=== PATIENT | male | born 1960 | race Caucasian/White ===

== ENCOUNTER 2018-04-10 17:59 | Inpatient (IN) | payer MEDICAID, OTHER ==
[~2018-04-10] VITALS: Ht 167.6 cm; Wt 62.6 kg
[~2018-04-10 17:59] MED LIST: AMLO10TA80 PO; ASPI-1159 PO; ATEN-42 PO; ATOR10TA PO; ATOR20TA PO; BENA20TA10 PO; DAILYVITE PO; DOCU-138 PO; FOLI-43 PO; HYDR100T26 PO; LORA10TA7 PO; NIFE60TA64 PO; NIFE60TA78 PO; OMEP20CA10 PO; REN800 PO
[2018-04-11] VITALS (7 sets, daily range): BP systolic 148–217; BP diastolic 67–104
[2018-04-11 03:30] LABS: BASOPHILS % 1.9 % (0.0-2.0); EOSINOPHILS % 6.3 % (0.0-5.0); HEMATOCRIT. 31.6 % (42.0-52.0); HEMOGLOBIN. 10.8 g/dL (14.0-18.0); MEAN CORPUSCULAR HEMOGLOBIN 33.4 pg (28.0-32.0); MEAN CORPUSCULAR VOLUME 97.8 fL (80.0-94.0); MEAN PLATELET VOLUME 9.4 fl (7.4-10.4); MONOCYTES % 8.8 % (2.0-8.0); PLATELET 279 x1000/uL (130-400); RED BLOOD CELL COUNT 3.23 mill/uL (4.7-6.1); RED CELL DISTRIBUTION WIDTH 13.8 % (11.6-14.6)
[2018-04-11 03:41] LABS: CHLORIDE 102 mEq/L (98-107)
[2018-04-11] MEDS ORDERED: HYDRALAZINE HCL 50MG TABLET PO NR (08:30)
[2018-04-11] MEDS ORDERED: ACETAMINOPHEN 325MG TABLET PO PRN (10:45)
[2018-04-11] MEDS ORDERED: HYDROCODONE/ACETAMINOPHEN 5/325MG TABLET PO PRN (10:45)
[2018-04-11] MEDS ORDERED: GUAIFENESIN 200MG/10ML SUGAR FREE UDC PO PRN (10:45)
[2018-04-11] MEDS ORDERED: DOCUSATE SODIUM 100MG CAPSULE PO PRN (10:45)
[2018-04-11] MEDS ORDERED: LORAZEPAM 2MG/ML CPJ IV PRN (10:45)
[2018-04-11] MEDS ORDERED: ONDANSETRON HCL 4MG/2ML INJ IV PRN ×2 (10:45→21:00)
[2018-04-11] MEDS ORDERED: CLONIDINE HCL 0.2MG/24HR PATCH TOP SCH (11:00)
[2018-04-11] MEDS ORDERED: AMLODIPINE 10MG TABLET PO NR (11:15)
[2018-04-11] MEDS ORDERED: METOPROLOL TARTRATE 25MG TABLET PO NR (11:15)
[2018-04-11] MEDS ORDERED: LISINOPRIL 5MG TABLET PO NR (12:00)
[2018-04-11] MEDS: LISINOPRIL 40MG TABLET PO SCH (13:45)
[2018-04-11] MEDS: MINOXIDIL 2.5MG TABLET PO SCH ×2 (15:28→20:20)
[2018-04-11] MEDS: AZITHROMYCIN 500 MG TABLET PO SCH (16:12)
[2018-04-11] MEDS ORDERED: DEXTROSE 50% WATER 50ML SYRINGE IV PRN (17:00)
[2018-04-11] MEDS: BLOOD SUGAR DIAGNOSTIC STRIP TEST SCH ×2 (17:32→20:24)
[2018-04-11] MEDS: SEVELAMER CARBONATE 800 MG TABLET PO SCH (17:40)
[2018-04-11] MEDS: INSULIN LISPRO 100 UNITS/ML SUBCUT SCH ×2 (17:40→20:25)
[2018-04-11] MEDS: METOPROLOL TARTRATE 25MG TABLET PO SCH (20:20)
[2018-04-11] MEDS: IPRATROPIUM BROMIDE (0.02%) 0.5MG/2.5ML NEB HHN SCH (21:05)
[2018-04-11] MEDS: ALBUTEROL (0.083%) 2.5MG/3ML NEB HHN SCH (21:05)
[2018-04-11] MEDS ORDERED: CLONIDINE 0.1MG TABLET PO PRN (22:00)
[2018-04-12] VITALS (12 sets, daily range): BP systolic 116–198; BP diastolic 62–97
[2018-04-12] MEDS: IPRATROPIUM BROMIDE (0.02%) 0.5MG/2.5ML NEB HHN SCH ×3 (02:06→19:45)
[2018-04-12] MEDS: ALBUTEROL (0.083%) 2.5MG/3ML NEB HHN SCH ×4 (02:06→19:45)
[2018-04-12 07:02] LABS: BASOPHILS % 1.2 % (0.0-2.0); EOSINOPHILS % 0.8 % (0.0-5.0); HEMATOCRIT. 37.5 % (42.0-52.0); HEMOGLOBIN. 12.4 g/dL (14.0-18.0); LYMPHOCYTES % 10.3 % (20.0-50.0); MEAN CORPUSCULAR HEMOGLOBIN 32.1 pg (28.0-32.0); MEAN CORPUSCULAR VOLUME 97.5 fL (80.0-94.0); MEAN PLATELET VOLUME 9.5 fl (7.4-10.4); MONOCYTES % 7.2 % (2.0-8.0); NEUTROPHILS % 80.5 % (40.0-76.0); PLATELET 298 x1000/uL (130-400); RED BLOOD CELL COUNT 3.85 mill/uL (4.7-6.1); RED CELL DISTRIBUTION WIDTH 13.8 % (11.6-14.6)
[2018-04-12 07:38] LABS: CHLORIDE 98 mEq/L (98-107)
[2018-04-12 07:48] LABS: PHOSPHORUS 5.5 mg/dL (2.5-4.9)
[2018-04-12] MEDS: MINOXIDIL 2.5MG TABLET PO SCH ×2 (08:27→21:24)
[2018-04-12] MEDS: SEVELAMER CARBONATE 800 MG TABLET PO SCH ×3 (08:27→17:46)
[2018-04-12] MEDS: AMLODIPINE 10MG TABLET PO SCH (08:27)
[2018-04-12] MEDS: LISINOPRIL 40MG TABLET PO SCH (08:27)
[2018-04-12] MEDS: AZITHROMYCIN 500 MG TABLET PO SCH (08:28)
[2018-04-12] MEDS: BLOOD SUGAR DIAGNOSTIC STRIP TEST SCH ×4 (08:28→21:16)
[2018-04-12] MEDS: METOPROLOL TARTRATE 25MG TABLET PO SCH ×2 (08:28→21:24)
[2018-04-12] MEDS ORDERED: SODIUM POLYSTYRENE SULFONATE 15 G/60 ML BOT PO NR (09:08)
[2018-04-12] MEDS: INSULIN LISPRO 100 UNITS/ML SUBCUT SCH ×4 (09:27→21:25)
[2018-04-12] MEDS ORDERED: AZITHROMYCIN 500 MG TABLET PO SCH (11:45)
[2018-04-12] MEDS ORDERED: BENZONATATE 100MG CAPSULE PO PRN (11:45)
[2018-04-12] MEDS: FOLIC ACID/VITAMIN B COMP W-C TABLET PO SCH (17:45)
[2018-04-13] VITALS (9 sets, daily range): BP systolic 118–159; BP diastolic 53–86
[2018-04-13] MEDS: IPRATROPIUM BROMIDE (0.02%) 0.5MG/2.5ML NEB HHN SCH ×2 (01:50→12:06)
[2018-04-13] MEDS: ALBUTEROL (0.083%) 2.5MG/3ML NEB HHN SCH (01:50)
[2018-04-13 07:31] LABS: CHLORIDE 103 mEq/L (98-107)
[2018-04-13 07:38] LABS: PHOSPHORUS 4.6 mg/dL (2.5-4.9)
[2018-04-13] MEDS: FOLIC ACID/VITAMIN B COMP W-C TABLET PO SCH (08:21)
[2018-04-13] MEDS: AZITHROMYCIN 500 MG TABLET PO SCH (08:22)
[2018-04-13] MEDS: SEVELAMER CARBONATE 800 MG TABLET PO SCH ×2 (08:22→12:46)
[2018-04-13] MEDS: AMLODIPINE 10MG TABLET PO SCH (08:22)
[2018-04-13] MEDS: MINOXIDIL 2.5MG TABLET PO SCH (08:23)
[2018-04-13] MEDS: LISINOPRIL 40MG TABLET PO SCH (08:23)
[2018-04-13] MEDS: METOPROLOL TARTRATE 25MG TABLET PO SCH (08:23)
[2018-04-13] MEDS: BLOOD SUGAR DIAGNOSTIC STRIP TEST SCH ×2 (08:24→12:48)
[2018-04-13] MEDS: INSULIN LISPRO 100 UNITS/ML SUBCUT SCH ×2 (08:24→12:47)
[2018-04-13] MEDS ORDERED: SODIUM POLYSTYRENE SULFONATE 15 G/60 ML BOT PO SCH (14:15)
== END 2018-04-13 18:14 | disposition home or self-care (01) | DRG 140 ==
LOC: ER 17:59 → 5EST 04-11 06:27 → EDBEDREQ 04-11 06:30 → EDBEDREQTM 04-11 06:30 → CANRESERV 04-11 08:00 → ENRESERV 04-11 08:00 → CANRESERV 04-11 09:12 → SUPCPDRO 04-11 10:35 → EDBEDREQSVC 04-11 10:59 → EDBEDREQ 04-11 10:59 → CANBEDREQ 04-11 11:00 → ENRESERV 04-11 11:21 → EDBEDREQSVC 04-11 11:56
PROVIDERS: ADMIT Hospitalist; ATTEND Hospitalist
PROC: 5A1D70Z Performance of Urinary Filtration, Intermittent, Less than 6 Hours Per Day (ICD-10-PCS; principal; 2018-04-12)
DX: J44.0 Chronic obstructive pulmonary disease with (acute) lower respiratory infection (principal); J18.9 Pneumonia, unspecified organism; E11.21 Type 2 diabetes mellitus with diabetic nephropathy; E11.649 Type 2 diabetes mellitus with hypoglycemia without coma; I13.11 Hypertensive heart and chronic kidney disease without heart failure, with stage 5 chronic kidney disease, or end stage renal disease; I16.0 Hypertensive urgency; N18.6 End stage renal disease; D63.1 Anemia in chronic kidney disease; K21.9 Gastro-esophageal reflux disease without esophagitis; E78.5 Hyperlipidemia, unspecified; N25.81 Secondary hyperparathyroidism of renal origin; E87.5 Hyperkalemia; E11.22 Type 2 diabetes mellitus with diabetic chronic kidney disease; Z99.2 Dependence on renal dialysis; Z87.891 Personal history of nicotine dependence; Z79.899 Other long term (current) drug therapy; Z79.82 Long term (current) use of aspirin; E44.1 Mild protein-calorie malnutrition
CPT/HCPCS: 36415; 71045; 82947; 82962; 83735; 84100; 84484; 87804; 93005; 93970; 94640; 99285; J1815; J2405; J7030; J7611

== ENCOUNTER 2018-07-27 17:32 | Inpatient (IN) | payer MEDICAID ==
[~2018-07-27] VITALS: Ht 167.6 cm; Wt 69.9 kg
[~2018-07-27 17:32] MED LIST changes: -AMLO10TA80 PO; -ATEN-42 PO; -ATOR20TA PO; -DAILYVITE PO; -LORA10TA7 PO; -NIFE60TA78 PO; -REN800 PO
[2018-07-27] MEDS ORDERED: ONDANSETRON HCL 4MG/2ML INJ IV STA (22:45)
[2018-07-27] MEDS ORDERED: KETOROLAC 30MG/ML VIAL IV STA (22:45)
[2018-07-27 23:28] LABS: BASOPHILS % 1.8 % (0.0-2.0); EOSINOPHILS % 7.5 % (0.0-5.0); HEMATOCRIT. 32.6 % (42.0-52.0); HEMOGLOBIN. 10.9 g/dL (14.0-18.0); MEAN CORPUSCULAR HEMOGLOBIN 33.8 pg (28.0-32.0); MEAN CORPUSCULAR VOLUME 100.7 fL (80.0-94.0); MEAN PLATELET VOLUME 8.9 fl (7.4-10.4); MONOCYTES % 13.3 % (2.0-8.0); NEUTROPHILS % 59.4 % (40.0-76.0); PLATELET 290 x1000/uL (130-400); RED BLOOD CELL COUNT 3.23 mill/uL (4.7-6.1)
[2018-07-27 23:30] LABS: CHLORIDE 95 mEq/L (98-107)
[2018-07-28] MEDS ORDERED: PIPERACILLIN/TAZ 3.375G PREMIX 50 ML IV ONE (02:45)
[2018-07-28] MEDS ORDERED: VANCOMYCIN 1 G PREMIX 200 ML IV ONE (02:45)
[2018-07-28] MEDS ORDERED: MORPHINE SULFATE 4 MG/ML CPJ (NOT FOR IM USE) IV ONE (04:15)
[2018-07-28] MEDS ORDERED: DEXTROSE 50% WATER 50ML SYRINGE IV PRN (05:45)
[2018-07-28] MEDS ORDERED: IPRATROPIUM/ALBUTEROL 0.5-3(2.5)MG/3ML NEB INH PRN (05:45)
[2018-07-28] MEDS ORDERED: LORAZEPAM 2MG/ML CPJ IV PRN (05:45)
[2018-07-28] MEDS ORDERED: ENOXAPARIN 40MG/0.4ML SYR SUBCUT SCH (05:45)
[2018-07-28] MEDS ORDERED: HYDROCODONE/ACETAMINOPHEN 10/325MG TABLET PO PRN (05:45)
[2018-07-28] MEDS ORDERED: ONDANSETRON HCL 4MG/2ML INJ IV ONE (05:45)
[2018-07-28] MEDS ORDERED: HYDRALAZINE 20MG/ML VIAL IV PRN (05:45)
[2018-07-28] MEDS ORDERED: HYDROMORPHONE HCL/PF 2MG/ML CPJ IV PRN (05:45)
[2018-07-28] MEDS ORDERED: DIPHENHYDRAMINE 50MG/ML VIAL IV PRN (05:45)
[2018-07-28] MEDS ORDERED: ACETAMINOPHEN 325MG TABLET PO PRN (05:45)
[2018-07-28] MEDS ORDERED: DOCUSATE SODIUM 100MG CAPSULE PO PRN (05:45)
[2018-07-28] MEDS ORDERED: ONDANSETRON HCL 4MG/2ML INJ IV PRN (05:45)
[2018-07-28] MEDS ORDERED: PIPERACILLIN/TAZ 3.375G PREMIX 50 ML IV SCH (05:45)
[2018-07-28] MEDS ORDERED: GUAIFENESIN 200MG/10ML SUGAR FREE UDC PO PRN (05:45)
[2018-07-28] MEDS ORDERED: MAGNESIUM/ALUMINUM HYDROXIDE/SIMETHICONE 30ML UDC PO PRN (05:45)
[2018-07-28] MEDS: SODIUM CHLORIDE 0.9% INJ 3ML FLUSH IVF SCH ×3 (06:56→22:24)
[2018-07-28] MEDS: INSULIN LISPRO 100 UNITS/ML SUBCUT SCH ×4 (08:20→21:00)
[2018-07-28] MEDS: BLOOD SUGAR DIAGNOSTIC STRIP TEST SCH ×4 (08:21→21:25)
[2018-07-28 09:31] LABS: CREATINE KINASE MB FRACTION 2.3 ng/mL (0.5-3.6)
[2018-07-28 10:00] VITALS: BP 219/99
[2018-07-28] MEDS ORDERED: LACTULOSE 20G/30ML UDC PO NR (11:30)
[2018-07-28] MEDS ORDERED: MEDICATION NOT ON FORMULARY EA (Folic Acid 1 MG) PO SCH (11:45)
[2018-07-28] MEDS ORDERED: MEDICATION NOT ON FORMULARY EA (Benazepril Hcl 20 MG) PO SCH (11:45)
[2018-07-28] MEDS ORDERED: INFLUENZA VIRUS VACCINE(AFLURIA) 0.5ML SYR IM ONE (11:45)
[2018-07-28] MEDS ORDERED: MEDICATION NOT ON FORMULARY EA (Docusate Sodium (Colace) 100 MG) PO PRN (11:45)
[2018-07-28] MEDS ORDERED: BISACODYL 10MG SUPP PR NR (11:45)
[2018-07-28] MEDS: ASPIRIN 81MG EC TABLET PO SCH ×2 (12:23→14:21)
[2018-07-28] MEDS: BENAZEPRIL 10MG TABLET PO SCH (12:27)
[2018-07-28] MEDS: NIFEDIPINE XL 60MG TAB PO SCH ×2 (12:28→14:22)
[2018-07-28] MEDS: PIPERACILLIN/TAZ 2.25G PREMIX 50 ML IV SCH ×2 (13:22→20:05)
[2018-07-28] MEDS ORDERED: VANCOMYCIN 500 MG PREMIX 100 ML IV NR (14:00)
[2018-07-28] MEDS ORDERED: NIFEDIPINE XL 60MG TAB PO NR (14:30)
[2018-07-28] MEDS ORDERED: BENAZEPRIL 10MG TABLET PO NR (14:30)
[2018-07-28] MEDS ORDERED: METOCLOPRAMIDE HCL 10MG/2ML VIAL IV PRN (14:30)
[2018-07-28] MEDS: ENOXAPARIN 30MG/0.3ML SYR SUBCUT SCH (14:31)
[2018-07-28] MEDS: OMEPRAZOLE 20MG CAPSULE EXTENDED RELEASE PO SCH (15:28)
[2018-07-28] MEDS ORDERED: CLONIDINE HCL 0.1MG/24HR PATCH TD NR (16:00)
[2018-07-28] MEDS: CLONIDINE 0.1MG TABLET PO PRN ×2 (17:53→18:01)
[2018-07-28 20:00] VITALS: BP 180/79
[2018-07-28] MEDS ORDERED: NIFEDIPINE 60 MG PO SCH (21:00)
[2018-07-28] MEDS ORDERED: ATORVASTATIN CALCIUM 10MG TABLET PO SCH (21:00)
[2018-07-29] VITALS: BP 134/65
[2018-07-29 04:00] VITALS: BP 191/96
[2018-07-29] MEDS: PIPERACILLIN/TAZ 2.25G PREMIX 50 ML IV SCH ×2 (04:17→12:00)
[2018-07-29] MEDS: SODIUM CHLORIDE 0.9% INJ 3ML FLUSH IVF SCH ×2 (06:05→12:46)
[2018-07-29] MEDS: BLOOD SUGAR DIAGNOSTIC STRIP TEST SCH ×2 (06:05→12:47)
[2018-07-29] MEDS: INSULIN LISPRO 100 UNITS/ML SUBCUT SCH ×2 (06:05→12:48)
[2018-07-29] MEDS: OMEPRAZOLE 20MG CAPSULE EXTENDED RELEASE PO SCH (06:05)
[2018-07-29 06:20] LABS: BASOPHILS % 1.1 % (0.0-2.0); EOSINOPHILS % 5.8 % (0.0-5.0); HEMATOCRIT. 32.6 % (42.0-52.0); LYMPHOCYTES % 11.9 % (20.0-50.0); MEAN CORPUSCULAR HEMOGLOBIN 33.8 pg (28.0-32.0); MEAN CORPUSCULAR VOLUME 99.9 fL (80.0-94.0); MEAN PLATELET VOLUME 9.3 fl (7.4-10.4); MONOCYTES % 9.2 % (2.0-8.0); PLATELET 291 x1000/uL (130-400); RED BLOOD CELL COUNT 3.26 mill/uL (4.7-6.1); RED CELL DISTRIBUTION WIDTH 13.2 % (11.6-14.6)
[2018-07-29 06:23] LABS: CHLORIDE 96 mEq/L (98-107)
[2018-07-29 06:36] LABS: PHOSPHORUS 4.7 mg/dL (2.5-4.9)
[2018-07-29 06:37] LABS: LDL CHOLESTEROL 101 mg/dL (5-100)
[2018-07-29 06:38] LABS: T4 FREE 0.97 ng/dL (0.76-1.46)
[2018-07-29 06:39] LABS: HDL CHOLESTEROL 77 mg/dL (40-59)
[2018-07-29] MEDS ORDERED: FOLIC ACID 1MG TABLET PO SCH (09:00)
[2018-07-29] MEDS ORDERED: BENAZEPRIL 10MG TABLET PO SCH (09:00)
[2018-07-29] MEDS ORDERED: NIFEDIPINE XL 60MG TAB PO SCH (09:00)
[2018-07-29 12:00] VITALS: BP 227/107
[2018-07-29] MEDS: ENOXAPARIN 30MG/0.3ML SYR SUBCUT SCH (12:00)
[2018-07-29] MEDS: CLONIDINE 0.1MG TABLET PO PRN (12:02)
[2018-07-29] MEDS ORDERED: VANCOMYCIN 750 MG PREMIX 150 ML IV SCH (15:00)
[2018-07-29 16:06] VITALS: BP 152/83
== END 2018-07-29 16:53 | disposition left against medical advice (07) | DRG 247 ==
LOC: ER 17:32 → 6WST 07-28 02:38 → EDBEDREQ 07-28 02:40 → EDBEDREQTM 07-28 02:40 → EDBEDREQDT 07-28 02:40 → EDBEDREQSVC 07-28 02:40 → ENRESERV 07-28 07:58
PROVIDERS: ADMIT Internal Medicine; ATTEND Internal Medicine
PROC: 5A1D70Z Performance of Urinary Filtration, Intermittent, Less than 6 Hours Per Day (ICD-10-PCS; principal; 2018-07-29)
DX: K56.41 Fecal impaction (principal); E11.22 Type 2 diabetes mellitus with diabetic chronic kidney disease; I12.0 Hypertensive chronic kidney disease with stage 5 chronic kidney disease or end stage renal disease; E87.1 Hypo-osmolality and hyponatremia; N18.6 End stage renal disease; D64.9 Anemia, unspecified; E78.5 Hyperlipidemia, unspecified; I16.0 Hypertensive urgency; K21.9 Gastro-esophageal reflux disease without esophagitis; N25.81 Secondary hyperparathyroidism of renal origin; Z79.82 Long term (current) use of aspirin; Z79.899 Other long term (current) drug therapy; Z82.49 Family history of ischemic heart disease and other diseases of the circulatory system; Z83.3 Family history of diabetes mellitus; Z99.2 Dependence on renal dialysis
CPT/HCPCS: 36415; 71045; 74176; 78265; 80061; 80202; 82550; 82553; 82962; 83605; 83735; 84100; 84145; 84439; 84443; 84484; 93005; 93970; 96365; 96375; 99285; J0360; J1650; J1885; J2270; J2405; J2543; J2765; J3370

== ENCOUNTER 2018-10-01 22:09 | Inpatient (IN) | payer MEDICAID ==
[~2018-10-01] VITALS: Ht 167.6 cm; Wt 72.3 kg
[2018-10-01] MEDS ORDERED: ONDANSETRON HCL 4MG/2ML INJ IV STA (22:55)
[2018-10-01 23:37] LABS: BASOPHILS % 0.6 % (0.0-2.0); EOSINOPHILS % 1.4 % (0.0-5.0); HEMATOCRIT. 44.5 % (42.0-52.0); HEMOGLOBIN. 15.1 g/dL (14.0-18.0); LYMPHOCYTES % 15.9 % (20.0-50.0); MEAN CORPUSCULAR HEMOGLOBIN 33.2 pg (28.0-32.0); MEAN PLATELET VOLUME 9.9 fl (7.4-10.4); MONOCYTES % 2.3 % (2.0-8.0); NEUTROPHILS % 79.8 % (40.0-76.0); PLATELET 337 x1000/uL (130-400); RED BLOOD CELL COUNT 4.54 mill/uL (4.7-6.1); RED CELL DISTRIBUTION WIDTH 14.1 % (11.6-14.6)
[2018-10-01 23:43] LABS: CHLORIDE 87 mEq/L (98-107)
[2018-10-01] MEDS ORDERED: MORPHINE SULFATE 4 MG/ML CPJ (NOT FOR IM USE) IV NR (23:45)
[2018-10-01] MEDS ORDERED: ONDANSETRON HCL 4MG/2ML INJ IV NR (23:45)
[2018-10-02] MEDS ORDERED: PANTOPRAZOLE SODIUM 40 MG/VIAL IV NR (00:30)
[2018-10-02] MEDS ORDERED: ONDANSETRON HCL 4MG/2ML INJ IV STA (04:27)
[2018-10-02] MEDS ORDERED: HYDRALAZINE 20MG/ML VIAL IV PRN (05:30)
[2018-10-02] MEDS ORDERED: HYDRALAZINE 20MG/ML VIAL IV NR ×2 (05:30)
[2018-10-02] MEDS: MORPHINE SULFATE 4 MG/ML CPJ (NOT FOR IM USE) IV PRN ×2 (05:45→11:47)
[2018-10-02] MEDS ORDERED: DEXTROSE 50% WATER 50ML SYRINGE IV PRN (08:45)
[2018-10-02] MEDS ORDERED: ONDANSETRON HCL 4MG/2ML INJ IV PRN (08:45)
[2018-10-02] MEDS ORDERED: LACTULOSE 20G/30ML UDC PO PRN (08:45)
[2018-10-02] MEDS ORDERED: LOSARTAN POTASSIUM 50 MG TABLET PO SCH (09:00)
[2018-10-02] MEDS: CLONIDINE 0.1MG TABLET PO PRN (09:10)
[2018-10-02] MEDS ORDERED: SORBITOL 70% SOLN 30ML PO SCH (09:15)
[2018-10-02] MEDS: DOCUSATE SODIUM 250MG CAPSULE PO SCH ×2 (09:31→17:50)
[2018-10-02] MEDS: PANTOPRAZOLE SODIUM 40 MG/VIAL IV SCH (09:38)
[2018-10-02] MEDS: BLOOD SUGAR DIAGNOSTIC STRIP TEST SCH ×4 (09:48→21:00)
[2018-10-02 11:30] VITALS: BP 168/109
[2018-10-02] MEDS: ONDANSETRON HCL 4MG/2ML INJ IV PRN ×2 (11:46→19:53)
[2018-10-02 11:50] VITALS: BP 168/109
[2018-10-02] MEDS ORDERED: MINERAL OIL ENEMA 133ML PR NR (12:00)
[2018-10-02] MEDS ORDERED: BISACODYL 5MG TABLET PO NR (12:15)
[2018-10-02] MEDS: INSULIN LISPRO 100 UNITS/ML SUBCUT SCH ×3 (12:42→21:00)
[2018-10-02] MEDS ORDERED: LABETALOL 5MG/ML SYR 20 MG/4 ML SYRINGE IV PRN (14:15)
[2018-10-02] MEDS: MINERAL OIL ENEMA 133ML PR PRN ×2 (15:16→15:18)
[2018-10-02 16:15] VITALS: BP 117/77
[2018-10-02 16:27] LABS: HEMOGLOBIN. 14.4 g/dL (14.0-18.0); MEAN CORPUSCULAR HEMOGLOBIN 32.9 pg (28.0-32.0); MEAN PLATELET VOLUME 10.3 fl (7.4-10.4); PLATELET 282 x1000/uL (130-400); RED BLOOD CELL COUNT 4.39 mill/uL (4.7-6.1); RED CELL DISTRIBUTION WIDTH 14.6 % (11.6-14.6)
[2018-10-02 16:40] LABS: CHLORIDE 88 mEq/L (98-107)
[2018-10-02] MEDS ORDERED: KETOROLAC 15MG/ML VIAL IV PRN ×2 (17:00→18:45)
[2018-10-02] MEDS ORDERED: BISACODYL 10MG SUPP PR NR (17:00)
[2018-10-02 17:21] LABS: PLATELET ESTIMATE NORMAL
[2018-10-02 17:30] VITALS: BP 165/98
[2018-10-02] MEDS ORDERED: ONDANSETRON HCL 4MG/2ML INJ IV NR (17:30)
[2018-10-02] MEDS ORDERED: SORBITOL 70% SOLN 30ML PO NR (18:00)
[2018-10-02] MEDS: ENALAPRIL 1.25MG/ML VIAL 1ML IV SCH (18:14)
[2018-10-02 20:00] VITALS: BP 110/60
[2018-10-02] MEDS: HYDRALAZINE 20MG/ML VIAL IV SCH (21:30)
[2018-10-02] MEDS: INSULIN GLARGINE UD 100 UNITS/ML SYR SUBCUT SCH (22:00)
[2018-10-03] VITALS (7 sets, daily range): BP systolic 123–194; BP diastolic 67–95
[2018-10-03] MEDS: HYDRALAZINE 20MG/ML VIAL IV SCH ×3 (04:58→21:21)
[2018-10-03] MEDS: METOCLOPRAMIDE HCL 10MG/2ML VIAL IV SCH ×3 (05:00→21:21)
[2018-10-03] MEDS: ENALAPRIL 1.25MG/ML VIAL 1ML IV SCH ×2 (05:05)
[2018-10-03 06:39] LABS: HEMATOCRIT. 39.5 % (42.0-52.0); HEMOGLOBIN. 13.1 g/dL (14.0-18.0); MEAN CORPUSCULAR HEMOGLOBIN 32.5 pg (28.0-32.0); MEAN CORPUSCULAR VOLUME 97.6 fL (80.0-94.0); MEAN PLATELET VOLUME 10.4 fl (7.4-10.4); PLATELET 265 x1000/uL (130-400); RED BLOOD CELL COUNT 4.04 mill/uL (4.7-6.1); RED CELL DISTRIBUTION WIDTH 14.6 % (11.6-14.6)
[2018-10-03] MEDS: BLOOD SUGAR DIAGNOSTIC STRIP TEST SCH ×4 (06:58→21:20)
[2018-10-03] MEDS: INSULIN LISPRO 100 UNITS/ML SUBCUT SCH ×4 (06:59→21:00)
[2018-10-03 07:32] LABS: CHLORIDE 96 mEq/L (98-107)
[2018-10-03 07:49] LABS: PHOSPHORUS 7.4 mg/dL (2.5-4.9)
[2018-10-03] MEDS: INSULIN GLARGINE UD 100 UNITS/ML SYR SUBCUT SCH ×2 (09:15→21:34)
[2018-10-03] MEDS: PANTOPRAZOLE SODIUM 40 MG/VIAL IV SCH (09:26)
[2018-10-03 10:21] LABS: PLATELET ESTIMATE NORMAL
[2018-10-03] MEDS ORDERED: CLONIDINE HCL 0.1MG/24HR PATCH TD SCH (11:00)
[2018-10-03] MEDS ORDERED: DILTIAZEM HCL 60MG TABLET PO NR (18:45)
[2018-10-04] VITALS: BP 133/65
[2018-10-04 04:00] VITALS: BP 168/69
[2018-10-04] MEDS: HYDRALAZINE 20MG/ML VIAL IV SCH ×3 (04:56→20:31)
[2018-10-04] MEDS: METOCLOPRAMIDE HCL 10MG/2ML VIAL IV SCH ×3 (05:17→22:38)
[2018-10-04 06:47] LABS: HEMATOCRIT. 35.7 % (42.0-52.0); HEMOGLOBIN. 12.1 g/dL (14.0-18.0); MEAN CORPUSCULAR HEMOGLOBIN 33.1 pg (28.0-32.0); MEAN CORPUSCULAR VOLUME 97.8 fL (80.0-94.0); MEAN PLATELET VOLUME 10.1 fl (7.4-10.4); PLATELET 241 x1000/uL (130-400); RED BLOOD CELL COUNT 3.65 mill/uL (4.7-6.1); RED CELL DISTRIBUTION WIDTH 14.8 % (11.6-14.6)
[2018-10-04] MEDS: BLOOD SUGAR DIAGNOSTIC STRIP TEST SCH ×4 (07:20→21:17)
[2018-10-04 07:38] LABS: PHOSPHORUS 6.4 mg/dL (2.5-4.9)
[2018-10-04] MEDS: INSULIN LISPRO 100 UNITS/ML SUBCUT SCH ×4 (07:50→21:00)
[2018-10-04 08:52] VITALS: BP 157/78
[2018-10-04] MEDS: PANTOPRAZOLE SODIUM 40 MG/VIAL IV SCH (09:14)
[2018-10-04] MEDS: DOCUSATE SODIUM 250MG CAPSULE PO SCH (09:14)
[2018-10-04] MEDS: INSULIN GLARGINE UD 100 UNITS/ML SYR SUBCUT SCH ×2 (10:00→22:00)
[2018-10-04 10:31] LABS: PLATELET ESTIMATE NORMAL
[2018-10-04] MEDS ORDERED: REGADENOSON 0.4 MG/5 ML IV NR (11:45)
[2018-10-04 12:00] VITALS: BP 191/89
[2018-10-04] MEDS: CALCIUM ACETATE 667MG CAPSULE PO SCH ×2 (13:51→18:56)
[2018-10-04 16:43] VITALS: BP 199/98
[2018-10-04 20:00] VITALS: BP 208/100
[2018-10-04] MEDS ORDERED: HYDROCODONE/ACETAMINOPHEN 5/325MG TABLET PO PRN (21:00)
[2018-10-05] MEDS: CLONIDINE 0.1MG TABLET PO PRN ×3 (00:03→14:13)
[2018-10-05 01:00] VITALS: BP 166/89
[2018-10-05 04:00] VITALS: BP 156/70
[2018-10-05] MEDS: HYDRALAZINE 20MG/ML VIAL IV SCH ×2 (05:30→13:30)
[2018-10-05] MEDS: METOCLOPRAMIDE HCL 10MG/2ML VIAL IV SCH (05:53)
[2018-10-05 06:28] LABS: HEMATOCRIT. 32.7 % (42.0-52.0); MEAN CORPUSCULAR HEMOGLOBIN 33.1 pg (28.0-32.0); MEAN CORPUSCULAR VOLUME 98.5 fL (80.0-94.0); MEAN PLATELET VOLUME 10.1 fl (7.4-10.4); PLATELET 233 x1000/uL (130-400); RED BLOOD CELL COUNT 3.32 mill/uL (4.7-6.1); RED CELL DISTRIBUTION WIDTH 14.7 % (11.6-14.6)
[2018-10-05 07:06] LABS: PHOSPHORUS 5.5 mg/dL (2.5-4.9)
[2018-10-05] MEDS: INSULIN LISPRO 100 UNITS/ML SUBCUT SCH ×2 (07:50→13:39)
[2018-10-05] MEDS: CALCIUM ACETATE 667MG CAPSULE PO SCH ×2 (07:50→13:36)
[2018-10-05 08:41] LABS: PLATELET ESTIMATE NORMAL
[2018-10-05 08:50] VITALS: BP 153/81
[2018-10-05] MEDS: DOCUSATE SODIUM 250MG CAPSULE PO SCH (09:37)
[2018-10-05] MEDS: PANTOPRAZOLE SODIUM 40 MG/VIAL IV SCH (09:38)
[2018-10-05] MEDS: INSULIN GLARGINE UD 100 UNITS/ML SYR SUBCUT SCH ×2 (10:00→13:10)
[2018-10-05] MEDS ORDERED: REGADENOSON 0.4 MG/5 ML IV ONE (11:30)
[2018-10-05 13:45] VITALS: BP 160/74
== END 2018-10-05 14:25 | disposition home or self-care (01) | DRG 247 ==
LOC: ER 22:09 → 6WST 10-02 01:30 → EDBEDREQTM 10-02 01:36 → EDBEDREQ 10-02 01:36 → EDBEDREQDT 10-02 01:36 → ENRESERV 10-02 10:07
PROVIDERS: ADMIT Internal Medicine; ATTEND Internal Medicine
PROC: 5A1D70Z Performance of Urinary Filtration, Intermittent, Less than 6 Hours Per Day (ICD-10-PCS; principal; 2018-10-02)
PROC: 5A1D70Z Performance of Urinary Filtration, Intermittent, Less than 6 Hours Per Day (ICD-10-PCS; 2018-10-03)
PROC: 5A1D70Z Performance of Urinary Filtration, Intermittent, Less than 6 Hours Per Day (ICD-10-PCS; 2018-10-05)
DX: K56.41 Fecal impaction (principal); I21.4 Non-ST elevation (NSTEMI) myocardial infarction; K85.90 Acute pancreatitis without necrosis or infection, unspecified; T18.3XXA Foreign body in small intestine, initial encounter; E11.22 Type 2 diabetes mellitus with diabetic chronic kidney disease; E87.2 Acidosis; I13.11 Hypertensive heart and chronic kidney disease without heart failure, with stage 5 chronic kidney disease, or end stage renal disease; E11.65 Type 2 diabetes mellitus with hyperglycemia; N18.6 End stage renal disease; E87.1 Hypo-osmolality and hyponatremia; E78.5 Hyperlipidemia, unspecified; X58.XXXA Exposure to other specified factors, initial encounter; E87.8 Other disorders of electrolyte and fluid balance, not elsewhere classified; K92.2 Gastrointestinal hemorrhage, unspecified; K21.9 Gastro-esophageal reflux disease without esophagitis; Z99.2 Dependence on renal dialysis; Z79.82 Long term (current) use of aspirin; Z82.49 Family history of ischemic heart disease and other diseases of the circulatory system; Z83.3 Family history of diabetes mellitus; Z79.899 Other long term (current) drug therapy; Y93.89 Activity, other specified; Y92.89 Other specified places as the place of occurrence of the external cause; Y99.8 Other external cause status
CPT/HCPCS: 36415; 71045; 74018; 74176; 78452; 80048; 82962; 83036; 83735; 84100; 84484; 87493; 93005; 93017; 93306; 93970; 96374; 96375; 96376; 99285; A6261; A9500; C9113; J0360; J1815; J1885; J2270; J2405; J2765; J2785; J3490

== ENCOUNTER 2019-06-17 13:48 | Emergency (ER) | payer MEDICAID ==
[~2019-06-17] VITALS: Ht 172.7 cm; Wt 59.0 kg
[~2019-06-17 13:48] MED LIST changes: -ASPI-1159 PO; +ASPI-1497 PO; +NIFE-32 PO; -NIFE60TA64 PO; -OMEP20CA10 PO; +OMEP20CA14 PO
[2019-06-18 00:13] LABS: EOSINOPHILS % 4.2 % (0.0-5.0); HEMATOCRIT. 33.6 % (42.0-52.0); HEMOGLOBIN. 11.2 g/dL (14.0-18.0); LYMPHOCYTES % 14.8 % (20.0-50.0); MEAN CORPUSCULAR HEMOGLOBIN 32.8 pg (28.0-32.0); MEAN CORPUSCULAR VOLUME 98.7 fL (80.0-94.0); MEAN PLATELET VOLUME 9.6 fl (7.4-10.4); MONOCYTES % 9.5 % (2.0-8.0); NEUTROPHILS % 70.5 % (40.0-76.0); PLATELET 273 x1000/uL (130-400); RED BLOOD CELL COUNT 3.41 mill/uL (4.7-6.1); RED CELL DISTRIBUTION WIDTH 14.6 % (11.6-14.6)
[2019-06-18 00:23] LABS: CHLORIDE 98 mEq/L (98-107)
[2019-06-18] MEDS ORDERED: CLONIDINE 0.2MG TABLET PO SCH (01:48)
[2019-06-18 03:32] VITALS: BP 135/76
== END 2019-06-18 03:34 | disposition home or self-care (01) ==
LOC: ER 13:48
DX: L03.032 Cellulitis of left toe (principal); I12.0 Hypertensive chronic kidney disease with stage 5 chronic kidney disease or end stage renal disease; E11.22 Type 2 diabetes mellitus with diabetic chronic kidney disease; N18.6 End stage renal disease; E78.00 Pure hypercholesterolemia, unspecified; Z99.2 Dependence on renal dialysis; Z79.899 Other long term (current) drug therapy; Z79.82 Long term (current) use of aspirin
CPT/HCPCS: 36415; 71045; 73660; 80053; 84484; 85025; 93005; 99284; Z7610

== ENCOUNTER 2022-07-25 16:48 | Emergency (ER) | payer MEDICAID, MEDICARE ==
[~2022-07-25] VITALS: Ht 177.8 cm; Wt 80.0 kg
[~2022-07-25 16:48] MED LIST changes: +BENA-8 PO; -BENA20TA10 PO
[2022-07-25 16:51] VITALS: BP 163/65
[2022-07-25] MEDS ORDERED: OXYCODONE HCL/ACETAMINOPHEN 5/325MG TABLET PO ONE (17:15)
[2022-07-25] MEDS ORDERED: OXYCODONE HCL/ACETAMINOPHEN 5/325MG TABLET PO NR (22:00)
== END 2022-07-26 00:35 | disposition home or self-care (01) ==
LOC: ER 16:48
DX: M24.812 Other specific joint derangements of left shoulder, not elsewhere classified (principal); J90 Pleural effusion, not elsewhere classified; V19.49XA Pedal cycle driver injured in collision with other motor vehicles in traffic accident, initial encounter; Y93.89 Activity, other specified; Y92.89 Other specified places as the place of occurrence of the external cause; Y99.8 Other external cause status; I12.0 Hypertensive chronic kidney disease with stage 5 chronic kidney disease or end stage renal disease; E11.22 Type 2 diabetes mellitus with diabetic chronic kidney disease; N18.6 End stage renal disease; Z99.2 Dependence on renal dialysis; Z79.899 Other long term (current) drug therapy
CPT/HCPCS: 71250; 73030; 82962; 93005; 99284; A4565

== ENCOUNTER 2023-09-29 01:48 | Inpatient (IN) | payer MEDICAID ==
[~2023-09-29] VITALS: Ht 170.2 cm; Wt 62.3 kg
[2023-09-29] VITALS (12 sets, daily range): BP systolic 128–157; BP diastolic 55–86; PULSE 68–98; RESP 16–20; TEMP 97.3–98.1
[2023-09-29 03:03] LABS: HEMATOCRIT. 28.3 % (42.0-52.0); HEMOGLOBIN. 9.3 g/dL (14.0-18.0); MEAN CORPUSCULAR HEMOGLOBIN 30.4 pg (28.0-32.0); MEAN CORPUSCULAR HGB CONC 32.9 g/dL (31.0-37.0); MEAN CORPUSCULAR VOLUME 92.5 fL (80.0-94.0); MEAN PLATELET VOLUME 8.8 fl (7.4-10.4); PLATELET 380 x1000/uL (130-400); RED BLOOD CELL COUNT 3.06 mill/uL (4.7-6.1); RED CELL DISTRIBUTION WIDTH 17.6 % (11.6-14.6); WHITE BLOOD COUNT 8.4 x1000/uL (4.5-11.0)
[2023-09-29 03:18] LABS: DIFFERENTIAL COMMENT 1
[2023-09-29 03:24] LABS: ALANINE AMINOTRANSFERASE < 7 IU/L (10-49); ALBUMIN 3.9 g/dL (3.2-4.8); ASPARTATE AMINOTRANSFERASE 22 IU/L (<34); BILIRUBIN TOTAL 0.3 mg/dL (0.1-1.0); CARBON DIOXIDE 28 mEq/L (21-32); CHLORIDE 91 mEq/L (98-107); GLUCOSE 178 mg/dL (70-105); POTASSIUM 4.2 mEq/L (3.5-5.1); PROTEIN TOTAL 7.1 g/dL (6.0-8.3); SODIUM 133 mEq/L (136-145); UREA NITROGEN BLOOD 69 mg/dL (9-23)
[2023-09-29] MEDS: HYDROMORPHONE HCL/PF 2MG/ML CPJ IV ONE (03:37)
[2023-09-29] MEDS: LABETALOL 5MG/ML SYR 20 MG/4 ML SYRINGE IV ONE (03:37)
[2023-09-29 03:58] LABS: TROPONIN I HIGH SENSITIVITY 109 ng/L (3.0-53)
[2023-09-29 05:48] LABS: PLATELET ESTIMATE NORMAL
[2023-09-29 06:35] LABS: CALCIUM 8.9 mg/dL (8.7-10.4); POTASSIUM 4.2 mEq/L (3.5-5.1)
[2023-09-29 06:54] LABS: CREATININE 7.1 mg/dL (0.6-1.3)
[2023-09-29] MEDS: HYDRALAZINE 20MG/ML VIAL IV PRN (06:55)
[2023-09-29] MEDS ORDERED: ONDANSETRON HCL 4MG/2ML INJ IV PRN (10:30)
[2023-09-29 15:21] LABS: HEPATITIS A AB IGM NEGATIVE (Negative); HEPATITIS B CORE AB IGM NEGATIVE (Negative); HEPATITIS B SURFACE ANTIGEN NEGATIVE (Negative); HEPATITIS C AB NON REACTIVE (Neg) (Negative)
[2023-09-29] MEDS ORDERED: DOCUSATE SODIUM 100MG CAPSULE PO PRN (16:00)
[2023-09-29] MEDS ORDERED: ACETAMINOPHEN 325MG TABLET PO PRN ×2 (16:00)
[2023-09-29] MEDS ORDERED: IPRATROPIUM/ALBUTEROL 0.5-3(2.5)MG/3ML NEB HHN PRN (16:00)
[2023-09-29] MEDS ORDERED: HYDROCODONE/ACETAMINOPHEN 5/325MG TABLET PO PRN (17:30)
[2023-09-29] MEDS ORDERED: LACTULOSE 20G/30ML UDC PO PRN (17:30)
[2023-09-29] MEDS ORDERED: HYDROMORPHONE HCL/PF 2MG/ML CPJ IV PRN (17:30)
[2023-09-29] MEDS: POLYETHYLENE GLYCOL 3350 (17GM) 1 DOSE PACK PO SCH (17:45)
[2023-09-29] MEDS ORDERED: NALOXONE HCL 0.4MG/ML VIAL IV PRN (17:45)
[2023-09-29] MEDS ORDERED: METHOCARBAMOL 500MG TABLET PO PRN (19:00)
[2023-09-29] MEDS: AMOXICILLIN/POTASSIUM CLAVULANATE 500/125MG TAB PO SCH (20:00)
[2023-09-29] MEDS ORDERED: AMOXICILLIN/POTASSIUM CLAVULANATE 875/125MG TAB PO SCH (21:00)
[2023-09-29 21:43] LABS: TROPONIN I HIGH SENSITIVITY 109 ng/L (3.0-53)
[2023-09-30] VITALS (15 sets, daily range): BP systolic 127–192; BP diastolic 55–83; PULSE 72–86; RESP 18–21; TEMP 96.8–98.4
[2023-09-30 01:52] LABS: TROPONIN I HIGH SENSITIVITY 106 ng/L (3.0-53)
[2023-09-30 07:08] LABS: HEMATOCRIT. 26.7 % (42.0-52.0); MEAN CORPUSCULAR HGB CONC 33.6 g/dL (31.0-37.0); MEAN CORPUSCULAR VOLUME 92.3 fL (80.0-94.0); MEAN PLATELET VOLUME 8.8 fl (7.4-10.4); PLATELET 378 x1000/uL (130-400); RED BLOOD CELL COUNT 2.89 mill/uL (4.7-6.1); RED CELL DISTRIBUTION WIDTH 17.2 % (11.6-14.6); WHITE BLOOD COUNT 7.5 x1000/uL (4.5-11.0)
[2023-09-30 07:49] LABS: CARBON DIOXIDE 28 mEq/L (21-32); CHLORIDE 97 mEq/L (98-107); GLUCOSE 135 mg/dL (70-105); PHOSPHORUS 2.2 mg/dL (2.5-4.9); POTASSIUM 4.2 mEq/L (3.5-5.1); SODIUM 134 mEq/L (136-145); UREA NITROGEN BLOOD 44 mg/dL (9-23)
[2023-09-30 08:06] LABS: CREATININE 5.7 mg/dL (0.6-1.3)
[2023-09-30 08:08] LABS: DIFFERENTIAL COMMENT 1
[2023-09-30] MEDS: CLONIDINE 0.1MG TABLET PO PRN (11:29)
[2023-09-30] MEDS ORDERED: HYDR-4001 MT (12:29)
[2023-09-30 13:34] LABS: ANISOCYTOSIS 1+; PLATELET ESTIMATE NORMAL
[2023-09-30] MEDS: HYDROCODONE/ACETAMINOPHEN 10/325MG TABLET PO PRN (15:59)
[2023-09-30] MEDS: ONDANSETRON HCL 4MG/2ML INJ IV PRN (15:59)
[2023-09-30] MEDS: LACTULOSE 20G/30ML UDC PO NR (16:07)
[2023-09-30] MEDS: SODIUM HYPOCHLORITE (0.25%) 480ML SOLUTION (HALF STRENGTH) TOP SCH (16:07)
[2023-09-30] MEDS ORDERED: LISI20TA31 PO (21:25)
[2023-09-30] MEDS ORDERED: METH-773 PO (21:25)
[2023-09-30] MEDS ORDERED: FOLI1TAB87 PO (21:25)
[2023-09-30] MEDS ORDERED: CLON0.3T PO (21:25)
[2023-09-30] MEDS ORDERED: BISA-145 PO (21:25)
[2023-09-30] MEDS ORDERED: [UNRECOGNIZED DRUG - CODE] PO (21:25)
[2023-09-30] MEDS ORDERED: NIFE90TA60 PO (21:25)
[2023-09-30] MEDS ORDERED: ACET-283 PO (21:25)
[2023-09-30] MEDS ORDERED: GABA-532 PO (21:25)
[2023-09-30] MEDS ORDERED: MINO2.5T19 PO (21:25)
[2023-09-30] MEDS ORDERED: LIDO35.421 TP (21:25)
[2023-09-30] MEDS ORDERED: ATOR20TA65 PO (21:25)
[2023-10-01 00:49] VITALS: BP 176/55; PULSE 73; RESP 16; TEMP 97.8
[2023-10-01 03:10] VITALS: BP 134/57
[2023-10-01 04:00] VITALS: BP 185/73; PULSE 74; RESP 20; TEMP 97.5
[2023-10-01 06:28] VITALS: BP 138/57
[2023-10-01 08:00] VITALS: BP 137/58; PULSE 80; RESP 20; TEMP 97.4
[2023-10-01 10:13] VITALS: BP 137/58; PULSE 80; TEMP 97.4; O2SAT 99
[2023-10-01] MEDS ORDERED: CIPROFLOXACIN 0.3% OPHTH SOLN 2.5ML LEFT EAR SCH (12:00)
== END 2023-10-01 10:55 | disposition home or self-care (01) | DRG 133 ==
LOC: ER 01:48 → 5WST 04:45 → EDBEDREQTM 04:46 → EDBEDREQ 04:46 → 7WST 20:31
PROVIDERS: ADMIT Internal Medicine; ATTEND Internal Medicine
PROC: 5A1D70Z Performance of Urinary Filtration, Intermittent, Less than 6 Hours Per Day (ICD-10-PCS; principal; 2023-09-29)
PROC: 5A1D70Z Performance of Urinary Filtration, Intermittent, Less than 6 Hours Per Day (ICD-10-PCS; 2023-09-30)
DX: J96.00 Acute respiratory failure, unspecified whether with hypoxia or hypercapnia (principal); I13.2 Hypertensive heart and chronic kidney disease with heart failure and with stage 5 chronic kidney disease, or end stage renal disease; N18.6 End stage renal disease; I24.89 Other forms of acute ischemic heart disease; L97.529 Non-pressure chronic ulcer of other part of left foot with unspecified severity; E11.22 Type 2 diabetes mellitus with diabetic chronic kidney disease; D64.9 Anemia, unspecified; N25.81 Secondary hyperparathyroidism of renal origin; I50.9 Heart failure, unspecified; E78.00 Pure hypercholesterolemia, unspecified; I16.1 Hypertensive emergency; E11.621 Type 2 diabetes mellitus with foot ulcer; H66.92 Otitis media, unspecified, left ear; Z99.2 Dependence on renal dialysis; M85.80 Other specified disorders of bone density and structure, unspecified site; M48.02 Spinal stenosis, cervical region; L98.492 Non-pressure chronic ulcer of skin of other sites with fat layer exposed; I25.10 Atherosclerotic heart disease of native coronary artery without angina pectoris; Z89.412 Acquired absence of left great toe; Z89.429 Acquired absence of other toe(s), unspecified side; Z98.1 Arthrodesis status
CPT/HCPCS: 36415; 71045; 73630; 80048; 80053; 82962; 83036; 83735; 84100; 84145; 84484; 85025; 85651; 86705; 86709; 87340; 90935; 93923; 99285; J0360; J1170; J2405; J3490